=== PATIENT | female | born 1975 | race African-American/Black ===

== ENCOUNTER 2017-01-29 08:18 | Emergency (ER) | payer MEDICAID ==
[~2017-01-29] VITALS: Ht 157.5 cm; Wt 88.5 kg
[2017-01-29] MEDS ORDERED: ALPR1TAB2 PO (08:39)
[2017-01-29] MEDS ORDERED: CEFTRIAXONE 250 MG ONE (09:25)
[2017-01-29] MEDS ORDERED: AZITHROMYCIN 500 MG TABLET ONE (09:25)
[2017-01-29] MEDS ORDERED: AZITHROMYCIN 500 MG TABLET PO ONE (09:30)
[2017-01-29] MEDS ORDERED: CEFTRIAXONE 250 MG IM ONE (09:30)
[2017-01-29 09:31] LABS: HCG UR OBC PASS
[2017-01-29 10:20] VITALS: BP 112/71
== END 2017-01-29 10:22 | disposition home or self-care (01) ==
LOC: ED 08:46
DX: N76.0 Acute vaginitis (principal); Z88.0 Allergy status to penicillin; Z88.1 Allergy status to other antibiotic agents
CPT/HCPCS: 81003; 81025; 87210; 87491; 87591; 87808; 96372; 99284; J0696

== ENCOUNTER 2020-01-31 15:52 | Emergency (ER) | payer MEDICAID ==
[~2020-01-31] VITALS: Ht 157.5 cm; Wt 88.5 kg
[~2020-01-31 15:52] MED LIST changes: -OMNIPAQUE 350 MG/ML, 100ML BOTTLE ONE
[2020-01-31 16:43] LABS: BASOPHILS # (AUTO) 0.03 x10^3/uL (0-0.1); BASOPHILS % (AUTO) 1 % (0-1); EOSINOPHILS # (AUTO) 0.05 x10^3/uL (0-0.4); EOSINOPHILS % (AUTO) 1 % (1-7); LYMPHOCYTES # (AUTO) 2.06 x10^3/uL (1-3.4); LYMPHOCYTES % (AUTO) 42 % (22-44); MD NO; MEAN CORPUSCULAR HEMOGLOBIN 30.5 pg (27.0-34.8); MEAN PLATELET VOLUME 7.9 fL (7.4-10.4); MONOCYTES # (AUTO) 0.42 x10^3/uL (0.2-0.8); MONOCYTES % (AUTO) 9 % (2-9); NEUTROPHILS # (AUTO) 2.29 x10^3/uL (1.8-6.8); NEUTROPHILS % (AUTO) 47 % (42-75); PLATELET COUNT 323 x10^3/uL (130-400); RED BLOOD COUNT 4.66 x10^6/uL (3.82-5.3); RED CELL DISTRIBUTION WIDTH 13.8 % (9.6-15.2)
[2020-01-31 16:57] LABS: ALBUMIN 3.7 g/dL (3.4-5.0); ANION GAP 6 mmol/L (5-15); CHLORIDE 110 mmol/L (98-107)
--- NOTE | 2020-01-31 16:58 | NUR ---
PT REQUESTED IV FIXED AFTER LAB "HURT HER ARM BEING RUFF AND WRAPED HER ARM IN TAPE" RN REMOVED TAPE AND OFFSITE AND APPLIED NEW OFFSITE. WARM BLANKET PROVIDED WITH BED SIDE HEAT APPLIED WITH PT EDUCATION ON HOW TO USE HEATER. PT RESTING IN BED, PT ON MONITOR AND PT DENIED ANY CURRENT NEEDS OR WANTS. RN WILL CONTINUE TO MONITOR
[2020-01-31 17:01] LABS: ALANINE AMINOTRANSFERASE 22 U/L (12-78); ALKALINE PHOSPHATASE 78 U/L (45-117); BILIRUBIN,TOTAL 0.5 mg/dL (0.2-1.0); CREATININE 0.69 mg/dL (0.55-1.02); TOTAL PROTEIN 7.2 g/dL (6.4-8.2)
[2020-01-31 17:55] VITALS: BP 143/74
== END 2020-01-31 18:19 | disposition home or self-care (01) ==
LOC: ED 18:15
DX: R10.31 Right lower quadrant pain (principal); R11.2 Nausea with vomiting, unspecified
CPT/HCPCS: 36415; 80053; 85025; 99283

== ENCOUNTER → 2020-01-31 | Outpatient (CLI) | payer MEDICAID ==
[~2020-01-31] MED LIST: ALPR1TAB2 PO; OMNIPAQUE 350 MG/ML, 100ML BOTTLE ONE
== END | disposition home or self-care (01) ==
LOC: RAD 13:25 → EDSTATUS 14:00
PROVIDERS: ATTEND Physician Assistant
DX: K57.30 Diverticulosis of large intestine without perforation or abscess without bleeding (principal); N85.4 Malposition of uterus
CPT/HCPCS: 74178; Q9967